=== PATIENT | male | born 1980 | race Caucasian/White ===

== ENCOUNTER 2021-03-19 14:53 | Outpatient (CLI) | payer BC, SELFPAY ==
[2021-03-19 07:06] VITALS: BP 152/99; PULSE 77; RESP 16; TEMP 36.7; O2SAT 96; BMI 30.6
[2021-03-19 15:40] VITALS: BP 124/83; PULSE 71; RESP 16; TEMP 36.8; O2SAT 96
[2021-03-19 16:40] VITALS: BP 124/85; PULSE 70; RESP 18; TEMP 36.9; O2SAT 96
== END 2021-03-19 14:54 | disposition home or self-care (01) ==
PROVIDERS: Visit Provider Family Medicine
DX: U07.1 COVID-19 (principal)
CPT/HCPCS: 96365

== ENCOUNTER → 2022-09-22 15:57 | Outpatient (BNVA) | payer BC, SELFPAY | PROVIDERS: Visit Provider Nurse Practitioner Family | DX: M10.9 Gout, unspecified (principal) | CPT/HCPCS: 80053; 82043; 84550 ==

== ENCOUNTER 2022-10-29 20:00 | Outpatient (CLI) | payer OTHER, SELFPAY | END 2022-10-29 20:01 | disposition home or self-care (01) | LOC: SLEEP 10-30 05:29 | PROVIDERS: Visit Provider Family Medicine | DX: G47.30 Sleep apnea, unspecified (principal); R06.83 Snoring; R53.83 Other fatigue; R00.1 Bradycardia, unspecified | CPT/HCPCS: 95810 ==